=== PATIENT | female | born 1995 | race African-American/Black ===

== ENCOUNTER 2020-08-18 20:52 | Emergency (ER) | payer SELFPAY ==
[~2020-08-18] VITALS: Ht 149.9 cm; Wt 80.7 kg
--- NOTE | 2020-08-18 21:00 | NUR ---
Dr. Carson at bedside for MSE.
--- NOTE | 2020-08-18 21:05 | NUR ---
Pt provided urine sample, sent to lab.
[2020-08-18 21:10] LABS: *URINE HCG, QUAL NEGATIVE (NEGATIVE)
[2020-08-18 21:11] LABS: *BILIRUBIN,URIN NEGATIVE (NEGATIVE); *BLOOD, URINE 2+ (NEGATIVE); *CLARITY,URINE CLEAR (CLEAR); *COLOR,URINE YELLOW (YELLOW); *KETONES,URINE TRACE (NEGATIVE); *UROBILINOGEN,URINE 0.2 E.U./dl (NORMAL); LEUKOCYTE ESTERASE ,URINE NEGATIVE (NEGATIVE); NITRITE, URINE NEGATIVE (NEGATIVE); UGLUCOSE NEGATIVE (NEGATIVE)
[2020-08-18] MEDS ORDERED: CEFTRIAXONE 500 MG VIAL IM ONE (21:15)
[2020-08-18 21:20] LABS: BACTERIA,URINE FEW /HPF (NONE SEEN); SQUAMOUS EPITHELIAL CELL,UR FEW /HPF (NONE SEEN); WBC,URINE 0-3 /HPF (0-3)
[2020-08-18] MEDS ORDERED: CEFTRIAXONE 500 MG VIAL ONE (21:33)
[2020-08-18] MEDS ORDERED: LIDOCAINE HCL 1% 20 ML VIAL ONE (21:33)
--- NOTE | 2020-08-18 21:34 | NUR ---
Patient discharged to home in stable condition. Written and verbal after care instructions given. Patient verbalizes understanding of instructions. Stressed follow up or return to ER for worsening s/s.
[2020-08-18 22:13] VITALS: BP 119/73
== END 2020-08-18 21:34 | disposition home or self-care (01) ==
LOC: ER 20:56 → EDBD 20:56 → ER 21:34
DX: N39.0 Urinary tract infection, site not specified (principal); Z20.2 Contact with and (suspected) exposure to infections with a predominantly sexual mode of transmission
CPT/HCPCS: 81001; 84703; 96372; 99283; J0696; J3490; A4663